=== PATIENT | female | born 1995 ===

== ENCOUNTER 2016-06-04 15:35 | Emergency (ER) | payer MEDICAID, OTHER ==
[2016-06-04 16:52] VITALS: BMI 36.6
--- NOTE | 2016-06-04 17:08 | OBHP ---
Datetime: 06/04/2016 16:41 IP Adm Impression: , intrauterine IP Admit Plan: Observation/Evaluation Admit Comment, IP Provider: 21 yo edc 08/23/16 presents with c/o h/a since 3am. States when she awakened at 3am to go to bathroom she noticed she had a h/a. She took an ES Tylenol and finally fel l asleep @ 5AM. She denies blurred va, scotomata, ruq pain, ctxs, decreased fm, pprom, vag bleeding. pmhx _ pshx: denies nkda medic:pnv shx: denies etoh, drugs, tobacco use I: 28.4wks h/a P: cbc, cmp, u/a, ldh Extremities - PN: Normal Abdomen - PN: Normal Lungs - PN: Normal Heart - PN: Normal Neurologic - PN: Normal HEENT - PN: Normal General - PN: Normal FHR - Baseline A Provider: 140 EGA AdmitDate IP: 28.4 Vital Signs Provider: Within Normal Limits IP Chief Complaint: Other NICHD Variability Prov Fetus A: Moderate 6-25bpm FHR Category Provider Fetus A: Category I NICHD Decel Fetus A IP Provider: None
[2016-06-04 17:40] VITALS: BP 125/72; RESP 18; TEMP 98.4; O2SAT 100
--- NOTE | 2016-06-04 18:14 | ED PDOC ---
HPI: General Adult Time Seen by Provider: 06/04/16 17:41 Chief Complaint (Nursing): Headache Chief Complaint (Provider): Headache History Per: Patient Additional Complaint(s): Pt. states this morning she developed a holocephalic, atraumatic, gradual onset headache. Reports that she is currently 20 weeks . She took Tylenol without relief prompting ED visit. Pt. was seen by Dr. Kennedy in the OB ED and as told that she is likely dehydrated. She was given a pitcher of water and shortly after headache resolved. Currently without headache. Denies trauma, fever, abdominal pain, pelvic pain, head injury, N/V, light sensitivity. Past Medical History Reviewed: Historical Data, Nursing Documentation, Vital Signs Vital Signs: Last Vital Signs Temp 98.4 F 06/04/16 17:36 Pulse 103 H 06/04/16 17:36 Resp 18 06/04/16 17:36 BP 125/72 06/04/16 17:36 Pulse Ox 100 06/04/16 17:36 - Family History Family History: States: No Known Family Hx - Immunization History Hx Tetanus Toxoid Vaccination: No Hx Influenza Vaccination: Yes Hx Pneumococcal Vaccination: No - Home Medications Home Medications: Ambulatory Orders Medication Instructions Recorded Multivit/Folic Acid/I 1 tab PO DAILY 05/20/16 [ Plus] - Allergies Allergies/Adverse Reactions: Allergies Allergy/AdvReac Type Severity Reaction Status Date / Time No Known Allergies Allergy Verified 05/20/16 12:06 Review of Systems ROS Statement: Except As Marked, All Systems Reviewed And Found Negative Neurological: Positive for: Headache Physical Exam - Reviewed Nursing Documentation Reviewed: Yes Vital Signs Reviewed: Yes - Physical Exam Appears: Positive for: Well, Non-toxic, No Acute Distress Head Exam: Positive for: ATRAUMATIC, NORMAL INSPECTION, NORMOCEPHALIC Skin: Positive for: Normal Color, Warm. Negative for: Rash Eye Exam: Positive for: EOMI, Normal appearance, PERRL ENT: Positive for: Normal ENT Inspection Neck: Positive for: Normal, Painless ROM Cardiovascular/Chest: Positive for: Regular Rate, Rhythm Respiratory: Positive for: CNT, Normal Breath Sounds Gastrointestinal/Abdominal: Positive for: Normal Exam, Soft, Other (gravid). Negative for: Tenderness Back: Positive for: Normal Inspection Extremity: Positive for: Normal ROM Neurologic/Psych: Positive for: Alert, Oriented - ECG O2 Sat by Pulse Oximetry: 100 Disposition - Clinical Impression Clinical Impression: Acute headache - Patient ED Disposition Is Patient to be Admitted: No - Disposition Referrals: Prasad Kennedy MD [Primary Care Provider] - Disposition: Routine/Home Disposition Time: 18:14 Condition: IMPROVED Additional Instructions: Drink plenty of fluids. Take Tylenol at home for pain as needed for headache. Instructions: Acute Headache (ED)
[2016-06-04 18:59] VITALS: PULSE 90
== END 2016-06-04 18:58 | disposition home or self-care (01) ==
LOC: H.ER 15:35 → H.EROB2 15:35 → H.ER 18:58
DX: R51 Headache (principal); Z3A.20 20 weeks gestation of pregnancy

== ENCOUNTER 2016-08-04 22:39 | Emergency (ER) | payer OTHER ==
[2016-07-19 08:28] VITALS: BMI 36.6
== END 2016-08-04 23:59 | disposition home or self-care (01) ==
LOC: H.EROB2 22:39
DX: O47.1 False labor at or after 37 completed weeks of gestation (principal); Z3A.37 37 weeks gestation of pregnancy

== ENCOUNTER 2016-08-11 11:24 | Emergency (ER) | payer OTHER ==
[2016-07-19 08:28] VITALS: BMI 36.6
--- NOTE | 2016-08-11 15:14 | OBHP ---
Datetime: 08/11/2016 15:08 IP Adm Impression: Term, intrauterine IP Admit Plan: Observation/Evaluation; Discharge home Admit Comment, IP Provider: The patient is 21-year-old 2 para 1 last menstrual period 2015 estimated gestational age 38 weeks patient went to see her PMD today and mentioned she had notic ed decreased movement patient referred to labor and delivery for evaluation. Patient states aidee t she had a cookie and noticed movement. Patient reports good movement and no vaginal ble eding or leakage of fluid no uterine contractions. Patient states her care has been unremark able. Past medical history none Past surgical history none No known drug allergies Social history no alcohol tobacco use Obstetrical history one previous normal spontaneous vaginal delivery no complications Review of systems patient denies headache chest pain shortness of breath palpitations nausea vomit ing diarrhea constipation vaginal bleeding dysuria heat or cold intolerance easy bruisability musculo skeletal or neurological complaints Vital signs stable afebrile Physical exam see notes Intrauterine at 38+ weeks reports decreased movement at PMD's office and now repor ts good movement NST reactive no decelerations that uterine contractions records from Dr. Kennedy reviewed We'll discharge home labor precautions and movement counts Follow-up with PMD in 1 week Pelvic Type - PN: Not Done Extremities - PN: Normal Abdomen - PN: Normal Back - PN: Not Done Breast - PN: Not Done Lungs - PN: Normal Heart - PN: Normal Thyroid - PN: Normal Neurologic - PN: Normal HEENT - PN: Normal General - PN: Normal Weight - Estimated: 7 Presentation-Admit: Vertex FHR - Baseline A Provider: 145 Gestation - Est Wks by US: 38.0 EGA AdmitDate IP: 38.2 Vital Signs Provider: Reviewed IP Chief Complaint: Decreased movement NICHD Variability Prov Fetus A: Moderate 6-25bpm NICHD Accel Fetus A IP Provider: 15X15 FHR Category Provider Fetus A: Category I NICHD Decel Fetus A IP Provider: None Genitourinary Exam: Not Done DTRs - PN: Normal Datetime: 08/04/2016 23:20 Comments, ACOG Physical Exam: pelvic exam: fingertip, thick, and high
== END 2016-08-11 15:10 | disposition home or self-care (01) ==
LOC: H.EROB2 11:24
DX: O47.1 False labor at or after 37 completed weeks of gestation (principal); Z3A.38 38 weeks gestation of pregnancy

== ENCOUNTER 2016-08-18 05:27 | Inpatient (IN) | payer OTHER ==
[2016-08-18 06:11] VITALS: BMI 38.0
--- NOTE | 2016-08-18 06:33 | OBADHP ---
Datetime: 08/18/2016 06:15 IP Chief Complaint Other: early / latent phase of labor Admit Comment, IP Provider: 30yo IUP at 39+w c/o CTX since 3am more painful this morning/not increased frequency/ No SROM / No VB +FM. She was 1cm at the office yesterday PNC: Dr Kennedy / chart rev'd PMSH: denies POBGYNH: x1 NKA PSoH: Denies smoking; ETOH; drugs A: IUP at 39+w / latent phase of labor / painful CXT PLAN: Admit to L_D Discussion about management of labor, medications with thier risks/complications, pain management, delivrey and care. LABS: CBC, HIV, TYPE and SCREEN< RPR spoke with Dr Kennedy PMD Pelvic Type - PN: Adequate Extremities - PN: Normal Abdomen - PN: Normal Back - PN: Normal Breast - PN: Normal Lungs - PN: Normal Heart - PN: Normal Thyroid - PN: Normal Neurologic - PN: Normal HEENT - PN: Normal General - PN: Normal Presentation-Admit: Vertex IP Fetus A Comments: Sonogram done by me : Cephalic FHR - Baseline A Provider: 135 Membranes, Provider: Intact Comments, ACOG Physical Exam: ROS: general: no fatigue/no weakness HEENT: slight [place]; no visual dist CV: No CP; No palpitations Resp: no SOB; no cough GI: No N/V/D : no F/U/D MS: no joint pain VAGINA: no tingling; no pain; no prodromal symtpoms Pool Provider: Negative IP Hx Assessment: The History has been Reviewed and is Current IP Chief Complaint: Uterine contractions NICHD Variability Prov Fetus A: Moderate 6-25bpm NICHD Accel Fetus A IP Provider: 15X15 FHR Category Provider Fetus A: Category I NICHD Decel Fetus A IP Provider: None Dilatation, Provider: 3-4 Genitourinary Exam: Normal DTRs - PN: Normal EGA AdmitDate IP: 39.2 IP Adm Impression: Term, intrauterine ; No Active Labor; Intact Membranes IP Admit Plan: Admit to unit; Initiate labor protocol Datetime: 08/11/2016 15:08 Weight - Estimated: 7 Gestation - Est Wks by US: 38.0 Vital Signs Provider: Reviewed
[2016-08-18 06:39] VITALS: BP 129/88; PULSE 93; RESP 18; TEMP 98.7; O2SAT 98
[2016-08-18] MEDS: Lactated Ringer's 1,000 ML IV SCH ×2 (07:24→08:30)
[2016-08-18] MEDS ORDERED: Lactated Ringer's 1,000 ML IV SCH (07:30)
[2016-08-18 07:31] LABS: BASO % 0.2 % (0.0-2.0); EOS # 0.1 K/uL (0.0-0.7); EOS % 0.9 % (0.0-4.0); HEMOGLOBIN 11.6 g/dL (12.0-16.0); LYMPH # 1.8 K/uL (1.0-4.3); LYMPH % 17.2 % (20.0-40.0); MEAN CELL VOLUME 82.8 fl (81.0-99.0); MEAN CORPUSCULAR HEMOGLOBIN 28.1 pg (27.0-31.0); MEAN PLATELET VOLUME 8.8 fl (7.2-11.7); MONO # 0.9 K/uL (0.0-0.8); MONO % 8.7 % (0.0-10.0); NEUT # 7.4 K/uL (1.8-7.0); NRBC % 0.1 % (0.0-0.0); RBC 4.14 Mil/uL (3.80-5.20); RED CELL DISTRIBUTION WIDTH 14.2 % (11.5-14.5); WHITE BLOOD COUNT 10.2 K/uL (4.8-10.8)
[2016-08-18] MEDS ORDERED: Bupivacaine HCl 0.25% PF (10 ml) Inj ONE (08:01)
[2016-08-18] MEDS ORDERED: Fentanyl/Bupivacaine HCl 250 ML EPI ONE ×2 (08:01→09:16)
[2016-08-18] MEDS ORDERED: Oxytocin 20 units in LR 2,000 ML IV ONE (08:47)
[2016-08-18] MEDS ORDERED: Oxycodone/Acetaminophen 5/325 mg Tab PO PRN ×2 (14:22→17:44)
--- NOTE | 2016-08-18 14:37 | OBDS ---
MATERNAL INFORMATION Maternal Complications: None Provider Comments: Delivered a living baby girl appears term cried spontaneously, 9/9 AF clear Placenta complete and intact. Perineum intact. No cervical or vaginal lacerations seen Uterus cont racted well , rectal done no defects. LABOR SUMMARY EDC: 08/23/2016 00:00 No. Babies in Womb: 1 Attempted: No Labor Anesthesia: Epidural LABOR INFORMATION Reason for Induction: Not Applicable Onset of Labor: 08/18/2016 08:10 Oxytocin: N/A Group B Beta Strep: Negative Antibiotics # of Doses: n/a Antibiotics Time of Last Dose: n/a Steroids Given: None Reason Steroids Not Administered: Not Applicable Other Reason Not Administered: n/a MEMBRANES Membranes Rupture Method: Artificial Rupture of Membranes: 08/18/2016 12:10 Amniotic Fluid Color: Clear (Annotations: Data stored by N on behalf of user) Amniotic Fluid Amount: Large Amniotic Fluid Odor: Normal VAGINAL DELIVERY Episiotomy: None Laceration Extension: N/A Laceration Type: None Laceration Repair: Not Applicable Laceration Repair Note: none Sponge Count Correct: Yes Sharps Count Correct: N/A Count Comment: count correct CSECTION DELIVERY Primary Indication: N/A Secondary Indication: N/A CSection Incision: N/A BABY A INFORMATION Born in Route : No : N/A Forceps: N/A Vacuum Extraction: N/A Shoulder Dystocia : No PRESENTATION/POSITION BABY A Presentation: Cephalic Breech Presentation: N/A INFORMATION BABY A Gestational Age at Delivery: 39.4 Gestational Status: Term IDENTIFICATION/MEDS BABY A ID Band Number: [id number]
[2016-08-19 06:45] LABS: HEMOGLOBIN 10.9 g/dL (12.0-16.0); MEAN CELL VOLUME 82.6 fl (81.0-99.0); MEAN CORPUSCULAR HGB CONC 33.9 g/dL (33.0-37.0); RBC 3.89 Mil/uL (3.80-5.20); RED CELL DISTRIBUTION WIDTH 14.2 % (11.5-14.5); WHITE BLOOD COUNT 9.9 K/uL (4.8-10.8)
--- NOTE | 2016-08-19 07:50 | OBPPN ---
Datetime: 08/19/2016 07:45 PP Pain Prov: Within normal limits PP Pain Prov comment: Denies SOB, chest pains or leg pains PP Nausea Prov: Denies PP Flatus Prov: Yes PP Breasts Prov: Normal PP Lungs Prov: Normal PP Abdomen/Uterus Prov: Abnormal PP Lochia Prov: Normal PP Vulva/Perineum Prov: Normal PP CVA Tenderness Prov: Normal PP Extremities Prov: Normal PP C/S Incision Prov: Not Applicable PP Progress Prov: Normal PP Comments Phys Exam Prov: breasts not engorged Abd soft not distended fundus firm below the umb. N T Ext no calf tenderness. PP Impression Prov: Normal progression PP Plan Prov: Continue present management PP Progress Note Prov: CBC done Continue PP care OOB amd ambulation IP PP Procedures: None
--- NOTE | 2016-08-20 09:12 | OBPPN ---
Datetime: 08/20/2016 09:07 PP Pain Prov: Within normal limits PP Pain Prov comment: no SOB, chest pains or leg pains PP Nausea Prov: Denies PP Flatus Prov: Yes PP Nausea Prov comment: voiding well PP Breasts Prov: Normal PP Lungs Prov: Normal PP Abdomen/Uterus Prov: Abnormal PP Lochia Prov: Normal PP Vulva/Perineum Prov: Normal PP CVA Tenderness Prov: Normal PP Extremities Prov: Normal PP C/S Incision Prov: Not Applicable PP Progress Prov: Normal PP Comments Phys Exam Prov: Abd soft not distended fundus firm below the umb NT Breast not engorged , ext no edema or calf tenderness PP Impression Prov: Normal progression PP Plan Prov: Discharge PP Progress Note Prov: D/c with instructions and follow up office IP PP Procedures: None Vital Signs Provider PP: Reviewed
--- NOTE | 2016-08-20 09:14 | OBDCSUM ---
Datetime: 08/20/2016 09:10 Discharged to, Provider: Home Follow up at, Provider: Dr Kennedy Disch Instr Activity: Bedrest; May be up to bathroom; May be up for meals; May Shower Disch Instr Diet: Regular Discharge Instructions, Provider: Routine instructions given Discharge Diagnosis, Provider: Term Delivered Discharge Time: 08/20/2016 09:10 Follow up in weeks, Provider: 4-6 wks Disch Referrals: None Contraception discussed, Prov: Yes Disch Activity Restrictions: No exercising; No lifting; No driving; Minimize walking; Minimize stair -climbing; No sexual activity; Nothing in vagina - [place], tampons, douche Discharge Comment, Provider: continue PNC vit Contraception after Delivery: Undecided
== END 2016-08-20 11:47 | disposition home or self-care (01) | DRG 373 ==
LOC: H.EROB2 05:27 → H.L&D 06:17 → H.OB/GYN 17:30
PROVIDERS: ADMIT Specialist; ATTEND Specialist
PROC: 10E0XZZ Delivery of Products of Conception, External Approach (ICD-10-PCS; principal; 2016-08-18)
PROC: 10907ZC Drainage of Amniotic Fluid, Therapeutic from Products of Conception, Via Natural or Artificial Opening (ICD-10-PCS; 2016-08-18)
PROC: 4A1HXCZ Monitoring of Products of Conception, Cardiac Rate, External Approach (ICD-10-PCS; 2016-08-18)
PROC: 3E0234Z Introduction of Serum, Toxoid and Vaccine into Muscle, Percutaneous Approach (ICD-10-PCS; 2016-08-19)
DX: O80 Encounter for full-term uncomplicated delivery (principal); Z23 Encounter for immunization; Z3A.39 39 weeks gestation of pregnancy; Z37.0 Single live birth

== ENCOUNTER 2017-04-07 15:13 | Emergency (ER) | payer OTHER ==
[2017-04-07 15:13] VITALS: BMI 38.0
[2017-04-07 15:30] VITALS: BP 123/80; PULSE 75; RESP 16; TEMP 98.5; O2SAT 99
--- NOTE | 2017-04-07 16:15 | ED PDOC ---
HPI: Abdomen Time Seen by Provider: 04/07/17 15:45 Chief Complaint (Nursing): Abdominal Pain Chief Complaint (Provider): Pelvic Pain History Per: Patient History/Exam Limitations: no limitations Onset/Duration Of Symptoms: Days (x3 ) Current Symptoms Are (Timing): Still Present Additional Complaint(s): 22 year old female presents to the emergency department with a complaint of an pelvic cramping sensation x3 days. Associated with back pain. Denies chest pain , shortness of breath, cough, burning or blood in urine, incontinence or frequency, fever, nausea, vomiting, diarrhea, or vaginal bleeding. PMD: Dr. Dale Barraza MD WARDSPERSON: Dr. Chris JARVIS Past Medical History Reviewed: Historical Data, Nursing Documentation, Vital Signs Vital Signs: Last Vital Signs Temp 98.5 F 04/07/17 15:26 Pulse 75 04/07/17 15:26 Resp 16 04/07/17 15:26 BP 123/80 04/07/17 15:26 Pulse Ox 99 04/07/17 18:40 - Medical History PMH: No Chronic Diseases - Surgical History Surgical History: No Surg Hx - Family History Family History: States: Unknown Family Hx - Immunization History Hx Tetanus Toxoid Vaccination: No Hx Influenza Vaccination: Yes Hx Pneumococcal Vaccination: No - Home Medications Home Medications: Ambulatory Orders Medication Instructions Recorded Multivit/Folic Acid/I 1 tab PO DAILY 05/20/16 [ Plus] Nitrofurantoin Macrocrystals 100 mg PO BID #10 cap 04/07/17 [Macrobid] - Allergies Allergies/Adverse Reactions: Allergies Allergy/AdvReac Type Severity Reaction Status Date / Time No Known Allergies Allergy Verified 04/07/17 15:26 Review of Systems ROS Statement: Except As Marked, All Systems Reviewed And Found Negative (As per HPI, otherwise negative) Constitutional: Negative for: Fever Cardiovascular: Negative for: Chest Pain Respiratory: Negative for: Cough, Shortness of Breath Gastrointestinal: Negative for: Nausea, Vomiting, Diarrhea Genitourinary Female: Positive for: Pelvic Pain. Negative for: Dysuria, Frequency, Incontinence, Hematuria, Vaginal Bleeding Musculoskeletal: Positive for: Back Pain Physical Exam - Reviewed Nursing Documentation Reviewed: Yes Vital Signs Reviewed: Yes - Physical Exam Appears: Positive for: No Acute Distress Head Exam: Positive for: NORMAL INSPECTION Skin: Positive for: Normal Color, Warm, Dry Neck: Positive for: Normal, Painless ROM, Supple Cardiovascular/Chest: Positive for: Regular Rate, Rhythm. Negative for: Murmur Respiratory: Positive for: Normal Breath Sounds. Negative for: Accessory Muscle Use, Respiratory Distress Gastrointestinal/Abdominal: Positive for: Normal Exam, Soft. Negative for: Tenderness Back: Positive for: Normal Inspection. Negative for: L CVA Tenderness, R CVA Tenderness Neurologic/Psych: Positive for: Alert, Oriented (x3) - Laboratory Results Result Diagrams: 04/07/17 16:16 04/07/17 16:16 Interpretation Of Abn Labs: urine wbc - ECG O2 Sat by Pulse Oximetry: 99 (RA) Pulse Ox Interpretation: Normal - CT Scan/US US Other Rad Studies (CT/US): Read By Radiologist Other Rad Interpretation: IUP - Progress ED Course And Treament: 1858: Stable. AAOx3. Pain free. Tolerated PO. Fu with pcp. Medical Decision Making Medical Decision Making: Time: 161 Initial impression: Abdominal cramping and pelvic pain Initial plan: --ABO/Rh Type --Type and Screen --Beta-HCG quantitative --CMP --Urine Preg & Dip --CBC w/ diff --Sodium Chloride 1L IV --Urine Culture --Urinalysis --OB Transvaginal --Reevaluation Time: 1700 --Beta HC.10 Time: 1805 --Transvaginal US Findings: The uterus measures approximately 9.0 x 4.9 x 5.3 cm. Anteverted. Cervix length measures approximately 4.0 cm. Endometrial thickness measures approximately 1.7 cm. There is evidence of an intrauterine gestational sac which measures 0.8 cm, out of range for gestational age calculation. 3 mm yolk sac. No evidence of pole at this time. The right ovary measures 2.8 x 2.1 x 2.5 cm. The left ovary measures 3.6 x 1.8 x 3.2 cm and contains 1.4 cm follicle/cyst. Blood flow was demonstrated to both ovaries. Impression: Evidence of an intrauterine gestational sac, out of range for gestational age calculation. 3 mm yolk sac. No evidence of pole at this time. Recommend correlation with quantitative beta HCG and follow-up as indicated. Scribe Attestation: Documented by Marielena Villegas, acting as a scribe for Brian M Viera MD. Provider Scribe Attestation: All medical record entries made by the Scribe were at my direction and personally dictated by me. I have reviewed the chart and agree that the record accurately reflects my personal performance of the history, physical exam, medical decision making, and the department course for this patient. I have also personally directed, reviewed, and agree with the discharge instructions and disposition. Disposition - Clinical Impression Clinical Impression: Threatened , UTI (urinary tract infection) - Patient ED Disposition Is Patient to be Admitted: No Counseled Patient/Family Regarding: Studies Performed, Diagnosis, Need For Followup, Rx Given - Disposition [facility] - [facility]17 Disposition: Routine/Home Disposition Time: 18:59 Condition: STABLE Additional Instructions: Return if not better in 3 days. Prescriptions: Nitrofurantoin Macrocrystals [Macrobid] 100 mg PO BID #10 cap Instructions: Threatened Miscarriage, Urinary Tract Infections in Adults
[2017-04-07 16:26] LABS: BASO # 0.1 K/uL (0.0-0.2); BASO % 0.9 % (0.0-2.0); EOS # 0.2 K/uL (0.0-0.7); EOS % 3.1 % (0.0-4.0); HEMOGLOBIN 14.5 g/dL (12.0-16.0); LYMPH # 2.2 K/uL (1.0-4.3); LYMPH % 30.3 % (20.0-40.0); MEAN CELL VOLUME 91.2 fl (81.0-99.0); MEAN CORPUSCULAR HEMOGLOBIN 31.4 pg (27.0-31.0); MEAN CORPUSCULAR HGB CONC 34.4 g/dL (33.0-37.0); MEAN PLATELET VOLUME 7.9 fl (7.2-11.7); MONO # 0.6 K/uL (0.0-0.8); MONO % 7.8 % (0.0-10.0); NEUT # 4.2 K/uL (1.8-7.0); NEUT % 57.9 % (50.0-75.0); NRBC % 0.3 % (0.0-0.0); RBC 4.63 Mil/uL (3.80-5.20); RED CELL DISTRIBUTION WIDTH 13.6 % (11.5-14.5); WHITE BLOOD COUNT 7.3 K/uL (4.8-10.8)
[2017-04-07 16:39] LABS: ALB/GLOB RATIO 1.1 (1.0-2.1); ALBUMIN 4.2 g/dL (3.5-5.0); ALT/SGPT 87 U/L (9-52); AST/SGOT 85 U/L (14-36); BLOOD UREA NITROGEN 7 mg/dl (7-17); CALCIUM 9.2 mg/dL (8.4-10.2); GFR AFRICAN-AMERICAN > 60; GFR NON-AFRICAN AMERICAN > 60
[2017-04-07] MEDS: Sodium Chloride 0.9% 1,000 ML IV STA (16:50)
[2017-04-07 17:21] LABS: SQUAMOUS EPITHIAL 28 /hpf (0-5); URINE BACTERIA FEW (<OCC); URINE BILIRUBIN NEGATIVE (NEGATIVE); URINE BLOOD MODERATE (NEGATIVE); URINE CLARITY CLOUDY (Clear); URINE COLOR YELLOW (YELLOW); URINE GLUCOSE (UA) NEG (Normal); URINE LEUKOCYTE ESTERASE MOD Leu/uL (Negative); URINE NITRATE POSITIVE (NEGATIVE); URINE PROTEIN NEGATIVE (NEGATIVE); URINE UROBILINOGEN 0.2-1.0 mg/dL (0.2-1.0)
--- NOTE | 2017-04-07 18:07 | US ---
Indication: and pain Comparison: OB , limited ultrasound performed 03/18/16 Technique: Real-time transabdominal pelvic ultrasound was performed. In addition a transvaginal pelvic ultrasound was necessary to better depict pelvic anatomy. Findings: The uterus measures approximately 9.0 x 4.9 x 5.3 cm. Anteverted. Cervix length measures approximately 4.0 cm. Endometrial thickness measures approximately 1.7 cm. There is evidence of an intrauterine gestational sac which measures 0.8 cm, out of range for gestational age calculation. 3 mm yolk sac. No evidence of pole at this time. The right ovary measures 2.8 x 2.1 x 2.5 cm. The left ovary measures 3.6 x 1.8 x 3.2 cm and contains 1.4 cm follicle/cyst. Blood flow was demonstrated to both ovaries. Impression: Evidence of an intrauterine gestational sac, out of range for gestational age calculation. 3 mm yolk sac. No evidence of pole at this time. Recommend correlation with quantitative beta HCG and follow-up as indicated.
== END 2017-04-07 19:10 | disposition home or self-care (01) ==
LOC: H.ER 15:13
DX: O20.0 Threatened abortion (principal); O23.40 Unspecified infection of urinary tract in pregnancy, unspecified trimester
CPT/HCPCS: 76817; 80053; 81003; 81025; 84702; 85025; 86850; 86900; 87086; 99283; J7040

== ENCOUNTER 2017-08-28 17:17 | Inpatient (IN) | payer OTHER ==
[2017-08-28 17:42] VITALS: BMI 38.3
[2017-08-28] MEDS ORDERED: AMPicillin 2 GM in Sodium Chloride 0.9% 100 ML IV ONE (17:44)
[2017-08-28] MEDS ORDERED: Magnesium Sulfate 4 gm/100 ml 4 GM/100 ML BAG IV ONE (17:44)
[2017-08-28] MEDS ORDERED: AMPicillin 1 GM in Sodium Chloride 0.9% 100 ML IV SCH (17:45)
[2017-08-28] MEDS ORDERED: Betamethasone Soluspan 30 mg/5mL Inj Susp IM SCH (17:45)
[2017-08-28] MEDS ORDERED: Lactated Ringer's 1,000 ML IV SCH ×2 (17:45)
--- NOTE | 2017-08-28 18:23 | OBHP ---
Datetime: 08/28/2017 17:40 IP Adm Impression: , intrauterine ; No Active Labor; Ruptured Membranes IP Admit Plan: Admit to unit; Initiate labor protocol IP Admit Plan Other: trasnfer to high risk facility Admit Comment, IP Provider: 22yo IUP at 25+w (EDC Nov 3 as per pt) c/o leaking from vagina s bianca 2pm. She took a shower and continued to have somethign coming out of vagina. No VB. +FM. no CT X She did have intercourse last night care [facility] undocumented POBGYNH: x 2 FT; no STD PMH: denies PSH: denies NKA PSOH denies smoking ETOH drugs A: IUp at 25w PROM not in labor Undocumented PNC PLAN: condition explained to pt. She understands. will contact [facility] for transport to high risk [facility]...start Ampicillin, Betamethasone and MgSO4 (neurophrohlyaxis) Spoke with [facility] and Dr Danielle...prep for transfer...consent signed by nithya after discussion an d her questions answered. Her was present Abdomen - PN: Normal Back - PN: Normal Lungs - PN: Normal Heart - PN: Normal Neurologic - PN: Normal HEENT - PN: Normal General - PN: Normal Presentation-Admit: Breech IP Fetus A Comments: sono oligo FHR - Baseline A Provider: 140 Amniotic Fluid Color, Provider: Clear Membranes, Provider: Ruptured Contraction Comments Provider: none Comments, ACOG Physical Exam: External vagina and legs: wet Sterile spec exam : gross pooling Cx closed Pool Provider: Positive Ferning Provider: Positive Vital Signs Provider: Reviewed; Within Normal Limits IP Chief Complaint: Suspected ruptured membranes NICHD Variability Prov Fetus A: Moderate 6-25bpm NICHD Accel Fetus A IP Provider: 10X10 FHR Category Provider Fetus A: Category I NICHD Decel Fetus A IP Provider: None Dilatation, Provider: 0 Genitourinary Exam: Abnormal
[2017-08-28 19:00] LABS: BASO % 0.4 % (0.0-2.0); EOS # 0.2 K/uL (0.0-0.7); HEMOGLOBIN 12.6 g/dL (12.0-16.0); LYMPH # 1.6 K/uL (1.0-4.3); LYMPH % 19.8 % (20.0-40.0); MEAN CELL VOLUME 88.8 fl (81.0-99.0); MEAN CORPUSCULAR HEMOGLOBIN 29.7 pg (27.0-31.0); MEAN CORPUSCULAR HGB CONC 33.4 g/dL (33.0-37.0); MEAN PLATELET VOLUME 8.5 fl (7.2-11.7); MONO # 0.6 K/uL (0.0-0.8); MONO % 7.6 % (0.0-10.0); NEUT # 5.8 K/uL (1.8-7.0); NEUT % 70.2 % (50.0-75.0); RBC 4.25 Mil/uL (3.80-5.20); RED CELL DISTRIBUTION WIDTH 12.7 % (11.5-14.5); WHITE BLOOD COUNT 8.2 K/uL (4.8-10.8)
[2017-08-28 23:41] VITALS: BP 124/67; PULSE 83; RESP 17; TEMP 98.7; O2SAT 100
== END 2017-08-28 19:15 | disposition short-term general hospital (02) | DRG 886 ==
LOC: H.EROB2 17:17 → H.L&D 17:43
PROVIDERS: ADMIT Obstetrics & Gynecology; ATTEND Obstetrics & Gynecology
PROC: 4A1HXCZ Monitoring of Products of Conception, Cardiac Rate, External Approach (ICD-10-PCS; principal; 2017-08-28)
DX: O42.912 Preterm premature rupture of membranes, unspecified as to length of time between rupture and onset of labor, second trimester (principal); Z3A.25 25 weeks gestation of pregnancy